=== PATIENT | male | born 1995 | race Caucasian/White ===

== ENCOUNTER → 2021-03-15 15:49 | Outpatient (CLI) | payer OTHER, SELFPAY ==
[2021-03-15 16:24] LABS: Erythrocyte Sedimentation Rate 14 mm/hr (0-20)
[2021-03-15 17:15] LABS: CRP < 2.90 mg/L (0.0-3.0); Luteinizing Hormone 7.9 mIU/mL; Prolactin 15.7 ng/mL
[2021-03-21 11:09] LABS: Testosterone, Free 10.55 ng/dL (5.00-21.00)
[2021-03-21 12:01] LABS: Testosterone, % Free 3.13 % (1.50-4.20); Testosterone, Total 337 ng/dL (264-916)
== END ==
PROVIDERS: PCP Nurse Practitioner Primary Care; Visit Provider Internal Medicine Gastroenterology
DX: N62 Hypertrophy of breast (principal)
CPT/HCPCS: 36415; 83001; 83002; 84146; 84402; 84403; 85652; 86140

== ENCOUNTER 2021-04-09 10:53 | Day surgery (SDC) | payer OTHER, SELFPAY ==
[2021-04-09] VITALS (8 sets, daily range): BP systolic 105–138; BP diastolic 74–85; PULSE 70–97; RESP 16–18; TEMP 35.9–36.6; O2SAT 91–100; BMI 28.8
[2021-04-09] MEDS: Lactated Ringers 1,000 ML 15 ML IV (11:18)
--- NOTE | 2021-04-09 11:53 | HP.PCM_ITS ---
History and Physical Date of Admission: 04/09/21 5 M who presents to the office today for evaluation of abdominal pain and weight loss. Referred from [facility] due to abdominal pain starting mid upper abdomen and spreading bilaterally under his rib cage. 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 Soreness/pain has become consistent about a year ago with increase in the lasts two month that has been interrupting life ? decreased appetite, early satiety and weight loss of 8lbs in the last two weeks. Bentyl and Prilosec attempted without effect. Pain is less noticeable first thing in the morning until he eats breakfast. Denies history of EGD or colonoscopy. Of note he is on Seroquel 37.5mg and Wellbutrin 150mg started 7-8 months prior. ROS Const Constitutional: Positive for fatigue and weight change Cardio Cardiology: Positive for chest pain at rest Gastro GI: Positive for abdominal pain, bloating, diarrhea and nausea/dyspepsia Psych Psychiatric: Positive for anxiety, Positive for depression and Positive for hyperactivity Endo Endocrine: Positive for fatigue and weight change Exam Const General: cooperative and comfortable Nutritional Appearance: average body habitus and well nourished [facility] Head: normal to inspection Ears: hearing grossly normal bilaterally Nose: external nose normal Face and sinus: normal facial exam Mouth: oral mucosae normal Throat: posterior oropharynx normal Eyes General: appearance normal, both eyes and all related structures Neck Neck: normal visual inspection Chest Chest palpation & inspection: normal inspection of the chest and normal palpation of entire chest wall Resp Effort & Inspection: normal respiratory effort Auscultation: Bilateral: Clear to Auscultation Cardio Palpation: normal PMI Rate: regular rate Rhythm: regular rhythm GI Inspection: normal to inspection Auscultation: normal bowel sounds Percussion: normal to percussion Palpation: no hepatosplenomegaly Skin General: no rashes or lesions noted Neuro General: patient alert Extrem General: normal to inspection Psych Affect: normal affect Quality Reporting Tobacco Screening (CMS 138) Smoking Status: Never smoker Assessment and Plan Assessment and Plan (1) Gynecomastia: Status: Acute Orders: Orders: CRP 03/15/21 Dr. Pedro Garces, DO FSH and LH 03/15/21 Dr. Pedro Garces, DO Prolactin 03/15/21 Dr. Pedro Garces, DO Erythrocyte Sed Rate 03/15/21 Dr. Pedro Garces DO Testosterone, Total / Free 03/15/21 Dr. Pedro Garces DO Plan - Dr. Pedro Garces, DO: I suspect that it He is taking. Atypical antipsychotics can cause gynecomastia. Just in case we draw labs including FSH, LH, free testosterone (2) Nausea: Status: Acute Plan - Dr. Pedro Garces, DO: We will treat him symptomatically with with scopolamine patch, and reports that she will often costochondritis associated pain. Plan Details Other Medications: New: scopolamine base 1 patch transdermal Q3D PRN 4 ea 1RF nausea and vomiting Dr. Pedro Garces, DO ibuprofen 600 mg PO Q12H PRN [address] Pedro Garces, DO sucralfate 10 mL PO QAC 1,000 mL 1RF Cindy Gray INDUSTRIAL ELECTRICAL ENGINEER, INDUSTRIAL ELECTRICAL ENGINEER-C I have re-examined the patient. There are no clinical changes since date of exam.
--- NOTE | 2021-04-09 12:00 | IMM_PTH ---
PATIENT: DAI MARIO LOC: EN U#:[id number] AGE/SX: 25/M ROOM: RE04/09/[address]: Dr. Pedro Garces DO : 1995 BED: DIS: 04/09/2021 SPEC #: [id number] RECD: 04/10/21 09:40 STATUS: EDDIE RELico #: [id number] DAVE: 04/09/21 12:[address]: Pedro Garces DEPT: IMMUNOHISTOCHEMISTRY RECD BY: Amanda Guerrero ENTERED: 04/10/21 09:40 SP TYPE: IMMUNO OTHR DR: Tacos Torres, BAN[employer]ET [employer] SERVER-C Tissues: B - Stomach, NOS Procedures: H Pylori (initial) PHYSICIAN & INSTITUTION [place] [address] SPECIMEN INFORMATION: Tissue Source: B ? Gastric antrum Clinical Info: Nausea Specimen Number: [id number] CPT code: 35334 METHODOLOGY: Deparaffinized sections of prefer/formalin-fixed tissue or PAP/DQ stained slides are incubated with monoclonal/polyclonal antibodies/oligonucleotide probes. Localization is made via biotin free immunoperoxidase method. Appropriate controls are performed and reacted as expected. Results on target cell population are indicated in the following table: RESULTS: ANTIBODY / CLONE RESULT Block B H Pylori (polyclonal) negative These tests were developed and their performance characteristics determined by [facility]. They may not have been cleared or approved by the U.S. Food and Drug Administration. The FDA has determined that such clearance or approval is not necessary. INTERPRETATION: B. Gastric antrum, biopsy: Negative for Helicobacter pylori organisms. SJ:robert 04/11/2021
--- NOTE | 2021-04-09 12:00 | EGD_PTH ---
PATIENT: DAI AMRIO LOC: EN U#:[id number] AGE/SX: 25/M ROOM: RE04/09/[address]: Dr. Pedro Garces DO : 1995 BED: DIS: 04/09/2021 SPEC #: [id number] RECD: 04/09/21 15:03 STATUS: EDDIE DA #: [id number] DAVE: 04/09/21 12:[address]: Pedro Garces DEPT: SURGICAL PATHOLOGY RECD BY: Alice Magana ENTERED: 04/10/21 07:54 SP TYPE: EGD BIOPSY OTHR DR: Tacos Torres, WHITEWATER RAFTING GUIDE-C Tissues: A - Duodenum, NOS B - Gastric mucous membrane C - Esophagus, NOS Procedures: Special Stain Group II Surgery Specimen Level IV Alcian Blue/PAS (control) HEADER OPERATION[place] [place] DIAGNOSIS: Nausea TISSUE SUBMITTED: A ? Duodenum biopsy, B ? Gastric antrum biopsy for histo and H. pylori, C ? Distal esophagus biopsy MICROSCOPIC DIAGNOSIS A. Duodenum, biopsy: Fragments of duodenal mucosa, no pathologic diagnosis. B. Gastric antrum, biopsy: Mild gastritis. See microscopic description and comment. C. Distal esophagus, biopsy: Fragments of gastroesophageal mucosa with moderate chronic inflammation. Intestinal metaplasia (goblet cell metaplasia) not identified. See comment. SJ:rg 04/11/2021 COMMENT B. The results of immunohistochemistry for Helicobacter pylori will be reported separately ([id number]). C. Alcian blue/PAS stain with matched control is used in the evaluation of the specimen. MICROSCOPIC DESCRIPTION Slides are reviewed. B. The specimen shows fragments of gastric mucosa with chronic inflammatory cell infiltrates in the lamina propria consisting of lymphocytes and plasma cells, consistent with mild chronic gastritis. GROSS DESCRIPTION A - Received in fixative is one container labeled with the patient's name and designated duodenum biopsy. The specimen consists of multiple irregular fragments of light weiss soft tissue that in aggregate measure 2 x 0.4 x 0.1 cm. The specimen is totally submitted in one cassette. B - Received in fixative is one container labeled with the patient's name and designated gastric antrum biopsy. The specimen consists of multiple irregular fragments of light weiss soft tissue that in aggregate measure 1 x 08 x 0.1 cm. The specimen is totally submitted in one cassette. C - Received in fixative is one container labeled with the patient's name and designated distal esophagus biopsy. The specimen consists of two irregular fragments of light weiss soft tissue that in aggregate measure 0.6 x 0.3 x 0.1 cm. The specimen is totally submitted in one cassette. / GENOVEVA:robert 04/10/21 TC:3 CPT: 54543 x3, 48656
--- NOTE | 2021-04-09 12:31 | OP.EGD_ITS ---
Patient Name: Tor Way Procedure Date: 04/09/2021 11:48 AM Date of : 1995 Age: 25 Procedure: Upper GI endoscopy Indications: Epigastric abdominal pain Providers: Pedro Garces DO Medicines: See the Anesthesia note for documentation of the administered medications Patient Profile: This is a 25 year old male. Refer to note in patient chart for documentation of history and physical. Patient has symptoms of chronic chest pain and chronic nausea. Complications: No immediate complications. Procedure: Pre-Anesthesia Assessment: - Prior to the procedure, a History and Physical was performed, and patient medications and allergies were reviewed. The patient is competent. The risks and benefits of the procedure and the sedation options and risks were discussed with the patient. All questions were answered and informed consent was obtained. Patient identification and proposed procedure were verified by the physician. Mental Status Examination: alert and oriented. Airway Examination: normal oropharyngeal airway and neck mobility. Respiratory Examination: clear to auscultation. CV Examination: normal. Prophylactic Antibiotics: The patient does not require prophylactic antibiotics. Prior Anticoagulants: The patient has taken no previous anticoagulant or antiplatelet agents. ASA Grade Assessment: II - A patient with mild systemic disease. After reviewing the risks and benefits, the patient was deemed in satisfactory condition to undergo the procedure. The anesthesia plan was to use moderate sedation / analgesia (conscious sedation). Immediately prior to administration of medications, the patient was re-assessed for adequacy to receive sedatives. The heart rate, respiratory rate, oxygen saturations, blood pressure, adequacy of pulmonary ventilation, and response to care were monitored throughout the procedure. The physical status of the patient was re-assessed after the procedure. After obtaining informed consent, the endoscope was passed under direct vision. Throughout the procedure, the patient's blood pressure, pulse, and oxygen saturations were monitored continuously. The Endoscope was introduced through the mouth, and advanced to the second part of duodenum. The upper GI endoscopy was accomplished without difficulty. The patient tolerated the procedure well. Moderate Sedation: Moderate (conscious) sedation was administered by the endoscopy nurse and supervised by the endoscopist. The patient's oxygen saturation, heart rate, blood pressure and response to care were monitored. Total physician intraservice time was 15 minutes. Scope In: 12:14:05 PM Scope Out: 12:22:59 PM Total Procedure Duration Time 0 hours 8 minutes 54 seconds Findings: LA Grade A (one or more mucosal breaks less than 5 mm, not extending between tops of 2 mucosal folds) esophagitis with no bleeding was found 34 to 35 cm from the incisors. Biopsies were taken with a cold forceps for histology. Verification of patient identification for the specimen was done. Estimated blood loss was minimal. Patchy mildly erythematous mucosa without bleeding was found in the gastric antrum. Biopsies were taken with a cold forceps for histology. Verification of patient identification for the specimen was done. Estimated blood loss was minimal. Mildly erythematous mucosa without active bleeding and with no stigmata of bleeding was found in the first portion of the duodenum and in the second portion of the duodenum. Biopsies were taken with a cold forceps for histology. Verification of patient identification for the specimen was done. Estimated blood loss was minimal. Impression: - LA Grade A reflux esophagitis. Biopsied. - Erythematous mucosa in the antrum. Biopsied. - Erythematous duodenopathy. Biopsied. Recommendation: - Discharge patient to home. - Resume previous diet. - Continue present medications. - Await pathology results. - Repeat upper endoscopy in 1 year for surveillance. - Return to GI office in 2 weeks. Procedure Code(s): --- Professional --- 08087, Esophagogastroduodenoscopy, flexible, transoral; with biopsy, single or multiple 58199, 59, Moderate sedation services provided by the same physician or other qualified health inpatient care manager rn performing the diagnostic or therapeutic service that the sedation supports, requiring the presence of an independent trained observer to assist in the monitoring of the patient's level of consciousness and physiological status; initial 15 minutes of intraservice time, patient age 5 years or older CPT copyright 2017 [employer] [place] [employer]. All rights reserved. The codes documented in this report are preliminary and upon curtain feller blindstitch review may be revised to meet current compliance requirements. Pedro Garces DO 04/09/2021 12:31:14 PM This report has been signed electronically. Number of Addenda: 1 Note Initiated On: 04/09/2021 11:48 AM Addendum Number: 1 Addendum Date: 12/12/2021 6:03:47 AM MAC was used instead of moderate sedation for the patient. Pedro Garces DO 12/12/2021 6:03:52 AM This report has been signed electronically.
--- NOTE | 2021-04-09 12:31 | OP.CCLET_ITS ---
12/12/2021 Bashir Wilson Re : Upper GI endoscopy procedure for Tor Way Dear Brian This procedure was performed on Friday, April 09, 2021. My impressions and recommendations are as follows: Impressions : - LA Grade A reflux esophagitis. Biopsied. - Erythematous mucosa in the antrum. Biopsied. - Erythematous duodenopathy. Biopsied. Recommendations : - Discharge patient to home. - Resume previous diet. - Continue present medications. - Await pathology results. - Repeat upper endoscopy in 1 year for surveillance. - Return to GI office in 2 weeks. My findings are described in the full procedure note, which is enclosed. If I can be of further assistance, please feel free to contact me at . Sincerely, Pedro Friend, 04/09/2021 12:31:14 PM This report has been signed electronically.
== END 2021-04-09 23:59 | disposition home or self-care (01) ==
LOC: EN 10:58 → AC 10:59
PROVIDERS: PCP Nurse Practitioner Primary Care; Referring Provider Nurse Practitioner Primary Care; Visit Provider Internal Medicine Gastroenterology
PROC: 0DJ08ZZ Inspection of Upper Intestinal Tract, Via Natural or Artificial Opening Endoscopic (ICD-10-PCS; CPT 43235; principal; 2021-04-09 11:55)
DX: K29.70 Gastritis, unspecified, without bleeding (principal); F31.9 Bipolar disorder, unspecified; K21.00 Gastro-esophageal reflux disease with esophagitis, without bleeding; Z79.899 Other long term (current) drug therapy; G25.81 Restless legs syndrome
CPT/HCPCS: 43239; 88305; 88313; 88342; J7120; J2405

== ENCOUNTER 2021-08-02 19:11 | Emergency (ER) | payer OTHER, SELFPAY ==
[2021-08-02 19:12] VITALS: BP 153/106; PULSE 93; RESP 16; TEMP 36.1; O2SAT 97; BMI 29.5
--- NOTE | 2021-08-02 19:29 | CT_ITS ---
INDICATION: headache EXAMINATION: CT BRAIN - CT Head or Brain W/O Contrast Injection TECHNIQUE: Multiple axial images were obtained of the head without intravenous contrast. A radiation dose optimization technique was used for this scan. IV Contrast dosage and agent: None. COMPARISON: None. FINDINGS: BRAIN PARENCHYMA: No intra- or extra-axial hemorrhage. No intracranial mass or mass effect. Willis/white matter differentiation is maintained and there is no blurring of the basal ganglia. There is no hyperdense vessel. Posterior fossa structures are unremarkable. CSF SPACES: Appropriate for age. No hydrocephalus. Basal cisterns are patent. CALVARIUM, SKULL BASE, PARANASAL SINUSES AND MASTOID AIR CELLS: Clear. No discrete lytic or blastic abnormalities. ORBITS: Both globes, extraocular muscles, optic nerves and retrobulbar fat appear unremarkable. ASPECTS Score for Acute Strokes: 10 CT/Brain/Head without Contrast IMPRESSION: Negative Brain CT without contrast. Electronically Signed: Deep Zapata DO at 20:26 EDT ,
--- NOTE | 2021-08-02 19:30 | EX.ED.DYSGE1 ---
HPI History of Present Illness Chief Complaint: Headache Informant: patient Narrative Narrative: 25-year-old male presenting to the emergency department with a multitude of somatic complaints. Patient notes basically daily frontal headaches. He notes diarrhea since April (for which she is seeing gastroenterology) he notes decreased appetite. He notes pain in his neck. He states that his muscles do not seem to be working correctly as he dictation notes that his arm is not always able to put the paper in the tray correctly. He notes some light sensitivity. He notes paresthesia of the left side of the scalp that comes and goes he called his doctor's office today and they recommended he come to emergency but was not clear as to what they were concerned about. He states he has not had any new medications in the past month. States the last 2 weeks have been the worst. He states he has an ENT appointment in 2 weeks. No fevers or chills. No rashes. No seizures or syncope. [facility] Medical History Alcohol use Bipolar disorder History of back problems History of Holter monitoring History of palpitations Nausea and vomiting Non-smoker Restless legs Wears glasses Home Medications bupropion HCl 300 mg 24 hr tablet, extended release 150 mg PO QAM 03/15/21 [History Last Taken 04/09/21] loratadine 10 mg tablet 10 mg PO PRN PRN 03/15/21 [History Last Taken Unknown] escitalopram oxalate [Lexapro] 10 mg PO DAILY 08/02/21 [History Last Taken Unknown] lithium carbonate 300 mg PO BREAKFAST 08/02/21 [History Last Taken Unknown] lithium carbonate 600 mg PO QHS 08/02/21 [History Last Taken Unknown] Allergy/AdvReac Type Severity Reaction Status Date / Time scopolamine Allergy Intermediate dry mouth, Verified 08/02/21 19:12 vision change, altered thoughts Surgical History No history of previous surgery Social History household members: none Smoking Status: Never smoker alcohol intake: current alcohol intake frequency: a few times a week substance use type: does not use caffeine: Yes Type: coffee Number of servings: 2 ROS ROS ED Constitutional Constitutional ED: Denies chills, fever(s) or weight loss Eyes Eyes: Reports change in vision; Denies diplopia ENT ENT ED: Denies ear pain, rhinorrhea or sore throat Cardiovascular Cardiovascular: Denies chest pain, orthopnea, palpitations or racing heartbeat Respiratory/Chest Respiratory/Chest: Denies cough, dyspnea or orthopnea Gastrointestinal Gastrointestinal: Denies abdominal pain, diarrhea, nausea or vomiting Genitourinary Genitourinary ED: Denies dysuria, hematuria or urinary frequency Musculoskeletal Musculoskeletal: Reports myalgias and neck pain; Denies arthralgias Integumentary Denies abscess or rash Neurologic Neurologic: Reports headache(s); Denies weakness Psychiatric Psychiatric: Denies anxiety, depression, suicidal ideation or suicidal thoughts Endocrine Endocrinology: Denies polydipsia, polyphagia or polyuria Allergic/Immunologic Allergic/Immunologic ED: Denies mouth swelling, tongue swelling or urticaria EXAM Physical Exam Const Vital Signs: 08/02/21 19:12 Temperature 97 F L Temperature Source Temporal Pulse Rate 93 Respiratory Rate 16 Blood Pressure 153/106 H Blood Pressure Mean 121 Pulse Ox 97 Oxygen Delivery Method Room Air Positive well nourished and well developed General Appearance ED: well developed HEENT Reports normocephalic, head/scalp atraumatic, TM's clear and moist mucous membranes Negative for trauma Tympanic Membrane ED: Yes TM's clear Eyes PERRL and EOMs intact bilaterally Neck no lymphadenopathy, supple and no JVD Resp normal respiratory effort and clear to auscultation bilaterally Cardio regular rate, regular rhythm and no murmurs GI normal to inspection, nondistended, normoactive bowel sounds and non-tender Palpation: soft Back/Spine no CVA tenderness and normal ROM Extremity normal to inspection General Extremety ED: Negative for edema General Extremity: Negative for edema Neuro oriented x3 and CN's II-XII intact bilaterally Sensorium / Orientation: alert Motor Exam: strength 5/5 throughout Psych mental status grossly normal Mood & Affect: Negative for depressed or tearful Skin no rashes or lesions noted and no wounds MDM MDM MDM Narrative Medical decision making narrative: CBC is normal. CMP is normal. Urinalysis is normal. CT the brain is normal. At this point I think it is reasonable that the patient be discharged home. I do not have a clear etiology for his symptoms but would encourage him to continue to follow-up. Lab Data Attestation: I reviewed the patient's lab results. Labs: Laboratory Results - last 24 hr 08/02/21 08/02/21 08/02/21 19:40 19:40 19:50 WBC 8.1 RBC 5.00 Hgb 15.8 Hct 45.7 MCV 91.4 MCH 31.6 MCHC 34.6 RDW Std Deviation 39.4 RDW Coeff of Moncho 11.9 Plt Count 293 MPV 8.8 Immature Gran % (Auto) 0.100 Neut % (Auto) 55.1 Lymph % (Auto) 30.0 [place] % (Auto) 7.9 Eos % (Auto) 5.8 H Baso % (Auto) 1.1 H Absolute Neuts (auto) 4.5 Absolute Lymphs (auto) 2.44 Nucleated RBC % 0 Sodium 138 Potassium 3.7 Chloride 104 Carbon Dioxide 29.0 Anion Gap 5 BUN 8 Creatinine 1.13 Estim Creat Clear Calc 104.08 Est GFR (MDRD) Af Amer 102 Est GFR (MDRD) Non-Af 84 BUN/Creatinine Ratio 7.1 L Glucose 97 Calcium 9.5 Total Bilirubin 0.60 AST 19 ALT 42 Alkaline Phosphatase 92 Total Protein 7.8 Albumin 3.6 Globulin 4.2 Albumin/Globulin Ratio 0.9 Urine Color Straw Urine Clarity Clear Urine pH 6.0 Ur Specific [place] 1.010 Urine Protein Negative Urine Glucose (UA) Normal Urine Ketones Negative Urine Occult Blood Negative Urine Nitrite Negative Urine Bilirubin Negative Urine Urobilinogen Normal Ur Leukocyte Esterase Negative Urine RBC 0 SEEN Urine WBC 0 SEEN Ur Squamous Epith Cells 0 SEEN Urine Bacteria 0 SEEN Urine Mucus 0 SEEN Radiography Diagnostic Testing: Clinical Impression(s) from Imaging Studies Brain CT 08/02/21 19:29 IMPRESSION: Negative Brain CT without contrast. Electronically Signed: Deep Zapata DO at 20:26 EDT , Discharge Plan Triage Chief Complaint: Headache ED Provider: Davy Mendez Dx/Rx/DC Orders Clinical Impression: Headache, Diarrhea, Paresthesias Instructions: ED Headache Unspecified Prescriptions: No Action bupropion HCl 300 mg tablet extended release 24 hr 150 mg PO QAM RF: 0 loratadine [Claritin] 10 mg tablet 10 mg PO PRN PRN (Reason: ALLERGIES) RF: 0 lithium carbonate 600 mg capsule 600 mg PO QHS RF: 0 lithium carbonate 300 mg capsule 300 mg PO BREAKFAST RF: 0 escitalopram oxalate [Lexapro] 10 mg tablet 10 mg PO DAILY RF: 0 Primary Care Provider: Tacos Torres NP Referrals: Tacos Torres NP, INSPECTOR PROCESS-C [Primary Care Provider] - As soon as possible Disposition Disposition: Home, Self Care
[2021-08-02 19:52] LABS: Absolute Lymphocyte Count 2.44 X10^3/uL (0.83-4.51); Absolute Neutrophil Count 4.5 X10^3/uL (2.0-7.7); Basophil# 0.09 X10^3/uL; Basophil% 1.1 % (0-1); Eosinophil# 0.47 X10^3/uL; Eosinophils% 5.8 % (0-5); Hematocrit 45.7 % (40-54); Hemoglobin 15.8 g/dL (13.0-16.5); Lymphocyte # 2.44 X10^3/ul (0.83-4.51); Mean Corp Hgb Conc 34.6 g/dL (32-36); Mean Corpuscular Hgb 31.6 pg (27.0-32.0); Mean Corpuscular Volume 91.4 fL (80-94); Mean Platelet Vol. 8.8 fl (6.2-12.0); Monocyte# 0.64 X10^3/uL; Monocyte% 7.9 % (0-10); NRBC Flagged by Analyzer 0 % (0-5); Neutrophil # 4.48 X10^3/uL (2.7-7.7); Neutrophil % 55.1 % (47-70); Platelet Count 293 K/mm3 (150-450); RBC Distribution Width CV 11.9 % (11.6-14.6); RBC Distribution Width SD 39.4 fl (35.1-43.9); White Blood Count 8.1 K/mm3 (4.4-11.0)
[2021-08-02 19:54] LABS: Bacteria 0 SEEN /hpf (None Seen); Mucous, Urine 0 SEEN /hpf (<or=2+); Red Blood Cells-Urine 0 SEEN /hpf (0-5); Squamous Epithelial Cells - UA 0 SEEN /hpf (0-5); White Blood Cells 0 SEEN /hpf (0-5)
[2021-08-02 19:58] LABS: Color, Urine Straw (Yellow); Glucose, Dipstick Normal (Normal); Ketone-Dipstick Negative (Negative); Leukocyte Esterase-Dipstick Negative /ul (Negative); Nitrite-Dipstick Negative (Negative); Occult Blood-Urine Negative /ul (Negative); Protein-Dipstick Negative (Negative); Urine Bilirubin Dipstick Negative (Negative); Urine Clarity Clear (Clear); Urine Urobilinogen Normal (Normal)
[2021-08-02 20:09] LABS: ALB/GLOB Ratio 0.9 RATIO (0.9-2.4); AST(SGOT) 19 U/L (15-37); Alanine Aminotransfer ALT/SGPT 42 U/L (16-61); Albumin, Serum 3.6 g/dL (3.2-5.0); Alkaline Phosphatase 92 U/L (45-117); Anion Gap 5 (5-15); BUN 8 mg/dL (7-18); BUN/Creat Ratio 7.1 RATIO (10-20); Calcium,Total 9.5 mg/dL (8.5-10.1); Chloride 104 mmol/L (98-107); Creatinine, Serum 1.13 mg/dL (0.70-1.30); EST Glomerular Filtration Rate 84 mL/min (>60); Est Glom Filt Rate - Afr Amer 102 mL/min (>60); Estimated Creatinine Clearance 104.08 ml/min; Globulin 4.2 g/dL (2.2-4.2); Glucose 97 mg/dL (74-106); Potassium 3.7 mmol/L (3.5-5.1); Protein, Total 7.8 g/dL (6.4-8.2); Sodium Level 138 mmol/L (136-145)
--- NOTE | 2021-08-02 21:09 | ED.RN ---
Lab notified that wrong tube was drawn for lithium level. Dr. Mendez notified. No new orders as patient reported normal lithium level drawn on 07/28/21.
== END 2021-08-02 20:50 | disposition home or self-care (01) ==
LOC: ED 20:05
PROVIDERS: Emergency Provider Emergency Medicine; PCP Nurse Practitioner Primary Care; Visit Provider Emergency Medicine
DX: R51.9 Headache, unspecified (principal); F31.9 Bipolar disorder, unspecified; R19.7 Diarrhea, unspecified; R20.2 Paresthesia of skin; Z79.899 Other long term (current) drug therapy
CPT/HCPCS: 70450; 80053; 81001; 85025; 99283; A4216

== ENCOUNTER → 2022-04-29 | Outpatient (CLI) | payer OTHER, SELFPAY ==
--- NOTE | 2022-04-29 08:11 | US_ITS ---
STUDY: ABDOMINAL ULTRASOUND - RIGHT UPPER QUADRANT REASON FOR VISIT: Male, 26 years old . Right upper quadrant pain. TECHNIQUE: Ultrasound evaluation of the right upper quadrant was performed with real-time and static page-scale imaging. TECHNICAL QUALITY: Limited. Examination limited by bowel gas. COMPARISON: None. FINDINGS: Liver: The liver measures 13.7 cm. There is normal echogenicity of the liver. The bile ducts are within normal limits. There is hepatic color flow. The direction of portal flow is hepatopetal. There is a 1.3 cm x 1 cm x 0.9 cm hyperechoic well-defined nodule in the right lobe of the liver. This most likely represents a small hemangioma. Gallbladder: Normal distended gallbladder. The gallbladder wall measures 2.2 mm. There is a negative sonographic Peacock''s sign. There is no pericholecystic fluid. There are no gallstones. Common Bile Duct (C.B.D.): The common bile duct measures 2.9 mm. Pancreas: There is nonvisualization of the pancreas due to overlying bowel gas. Right Kidney: Normal size of the right kidney. The right kidney measures 11.3 cm x 6 cm x 5.8 cm. Normal renal cortex. The right cortex measures 2.4 cm. There is no demonstrated renal mass or cyst. There is no right hydronephrosis. US/Abdomen Limited IMPRESSION: Findings suggestive of a 1.3 cm x 1 cm x 0.9 cm hemangioma in the right lobe of the liver. Electronically Signed: Jae Bell MD at 15:32 EST ,
== END | disposition home or self-care (01) ==
LOC: US 08:07
PROVIDERS: PCP Nurse Practitioner Primary Care; Visit Provider Nurse Practitioner Primary Care
DX: D18.03 Hemangioma of intra-abdominal structures (principal)
CPT/HCPCS: 76705